=== PATIENT | female | born 1995 | race Caucasian/White ===

== ENCOUNTER 2020-07-20 10:49 | Day surgery (SDC) | payer OTHER ==
[2020-07-20 11:44] VITALS: BMI 21.5
[2020-07-20 11:56] LABS: Amnisure Test No Membranes Rupture (No Rupture)
[2020-07-20 11:57] LABS: Amnisure Internal Control QC ACCEPTABLE (ACCEPTABLE)
[2020-07-20] MEDS ORDERED: hydrALAZINE 20 MG/ML VIAL SLOW IVP PRN (12:24)
[2020-07-20 12:38] LABS: Bacteria/HPF 1+ HPF (None Seen); Bilirubin Negative (Negative); Blood, Urine Negative (Negative); Clarity Clear (Clear); Glucose, Urine (Dipstick) Normal (Negative); Ketone, Urine Negative (Negative); Leukocyte Negative Leu/uL (Negative); Nitrite Negative (Negative); Protein, Urine (Dipstick) 20 mg/dL (Neg-Trace); RBC/HPF 0-3 HPF (0-3); Specific Gravity, Urine 1.024 (1.002-1.036); Urobilinogen Normal mg/dL (Less than 2); WBC/HPF 0-3 HPF (0-3); pH, Urine 6.5 (5.0-9.0)
--- NOTE | 2020-07-20 13:15 | PRG ---
DATE OF SERVICE: 07/20/2020 PRIMARY OB: Dr. Amber Cortez. CHIEF COMPLAINT: Leakage of fluid. HISTORY OF PRESENT ILLNESS: The patient is a 24-year-old G1, P0 female with an intrauterine at 26 weeks gestation and 3 days, presenting with leakage of fluid that occurred this morning. She reports required her to change her panty liner and they got her underclothes wet. She reports yesterday she had some discharge that was more mucousy and yellow. She since denies any continued leakage of fluid. She denies any change in discharge or any recent intercourse. The patient denies fever, cough, headache, chest pain, shortness of breath, nausea, vomiting, or diarrhea. The patient reported a little bit of diarrhea this morning. Denies constipation. Denies any new rashes, hip problems, knee problems, or muscle weakness. Denies vaginal bleeding. Denies urinary urgency or frequency. PAST MEDICAL HISTORY: Anxiety, recurrent urinary tract infections. PAST SURGICAL HISTORY: Knee surgery and tonsillectomy. ALLERGIES: NO KNOWN DRUG ALLERGIES. MEDICATIONS: She takes Keflex after intercourse, Zoloft 50 mg tablet daily, and vitamins. SOCIAL HISTORY: Denies drug, alcohol, or tobacco use. OB LABORATORY DATA: Blood type is A negative. Antibody screen is negative. VDRL is nonreactive. HIV is nonreactive. Hepatitis B surface antigen is negative. GC chlamydia is negative. She is rubella immune. REVIEW OF SYSTEMS: Per HPI. PHYSICAL EXAMINATION: VITAL SIGNS: Blood pressure 119/75, heart rate of 83, respiratory rate of 16, saturating 94% to 96% on room air, temperature 98.1. Of note, the pulse oximetry machine is reading through . GENERAL: She appears to be in no acute distress. She is alert, oriented, cooperative, and pleasant to interact with. HEAD: Normocephalic and atraumatic. LUNGS: Clear to auscultation bilaterally. HEART: Regular rate and rhythm. ABDOMEN: Gravid, soft, nontender. EXTREMITIES: Nontender, nonedematous. Vulva without masses, lesions, or erythema. Vagina is moist. She does have a little bit of watery discharge visible, white in color. Cervix is visibly closed. There is no erythema or lesions visible. There is no pooling on Valsalva or bearing down. DIAGNOSTIC DATA: heart tracing shows the fetus with a baseline in the 140s with moderate long-term variability, appropriate for 26-week gestation. Tocometer showing some irritability, not felt by the patient. AmniSure test is negative. Urinalysis and VP3 are pending. ASSESSMENT AND PLAN: The patient is a 24-year-old G1, P0 female with an intrauterine at 26 weeks and 3 days, presenting for leakage of fluid. Her initial evaluation shows no evidence of rupture of membranes. We are awaiting on evidence of urinary tract infection or bacterial vaginosis that could explain some of her symptoms. Fetus has a category 1 tracing. The patient will be discharged to home once the results become available and appropriate antibiotics are prescribed as indicated. The patient has an appointment with Dr. Cortez to be seen on the 06 of August. ua/vp3 were neg. PT was discharged home with reassurance. Job ID: [id number] MTDD
[2020-07-20 14:32] LABS: Bacteria/HPF None Seen HPF (None Seen); Bilirubin Negative (Negative); Blood, Urine Negative (Negative); Clarity Clear (Clear); Glucose, Urine (Dipstick) 150 mg/dL (Negative); Ketone, Urine Negative (Negative); Leukocyte Negative Leu/uL (Negative); Mucous/LPF 1+ LPF (<2+); Nitrite Negative (Negative); Protein, Urine (Dipstick) Negative (Neg-Trace); RBC/HPF 0-3 HPF (0-3); Specific Gravity, Urine 1.017 (1.002-1.036); Squamous Epithelial 0-3 HPF (0-3); Urobilinogen Normal mg/dL (Less than 2); WBC/HPF 0-3 HPF (0-3); pH, Urine 6.5 (5.0-9.0)
== END 2020-07-20 14:20 | disposition home or self-care (01) ==
LOC: L&D/OP 10:49
PROVIDERS: ATTEND Student in an Organized Health Care Education/Training Program
DX: O99.89 Other specified diseases and conditions complicating pregnancy, childbirth and the puerperium (principal); N89.8 Other specified noninflammatory disorders of vagina; O99.342 Other mental disorders complicating pregnancy, second trimester; F41.9 Anxiety disorder, unspecified; Z3A.26 26 weeks gestation of pregnancy
CPT/HCPCS: 81001; 84112; 87480; 87510; 87660; 99284

== ENCOUNTER 2020-07-27 10:40 | Day surgery (SDC) | payer OTHER ==
[2020-07-27 11:20] VITALS: BP 119/59; BMI 21.5
[2020-07-27 11:42] LABS: Amnisure Test No Membranes Rupture (No Rupture)
[2020-07-27 11:43] LABS: Amnisure Internal Control QC ACCEPTABLE (ACCEPTABLE)
--- NOTE | 2020-07-27 12:00 | PDOC.LDHP ---
Labor and Delivery H&P Chief complaint: loss of fluid HPI: 24 y/o G1 at 27w3d, patient of Dr. Cortez, presents with LOF. She reports having a big gush of fluid earlier this morning. Having mild cramping but denies VB, ctx, or decreased FM. ROS neg for HEENT, cv, pulm, gi, gu, neuro, psych, skin, musculoskeletal or constitutional symptoms other than mentioned above. OB History Details: First Past Medical History: Anxiety, recurrent UTIs Current medications: pre-robyn vitamins, other (zoloft 50mg, keflex after intercourse) Previous surgical history: other (knee surgery, tonsillectomy) Allergies/Adverse Reactions: Allergies Allergy/AdvReac Type Severity Reaction Status Date / Time No Known Allergies Allergy Verified 07/27/20 11:20 Social history: none - Physical Exam Vital signs reviewed and normal: yes General: NAD, resting Lungs: nonlabored breathing Abdomen: gravid Extremeties: no edema FHT: category 1 (140s, mod variability, + accels, no decels) [place] contractions every: None - Vaginal Exam cm dilated: 0 Effacement: 0% Station: -3 - OB Labs Blood type: A RH: negative - Assessment 24 y/o G1 at 27w3d with no e/o SROM. SSE neg for pooling, valsalva, and a mnisure negative. Bedside ultrasound for CLIFTON = 17cm. status reassuring with reactive NST. - Plan -: D/c home with precautions. Advised to keep all appointments.
== END 2020-07-27 12:05 | disposition home or self-care (01) ==
LOC: L&D/OP 10:40
PROVIDERS: ATTEND Student in an Organized Health Care Education/Training Program
DX: O99.89 Other specified diseases and conditions complicating pregnancy, childbirth and the puerperium (principal); N89.8 Other specified noninflammatory disorders of vagina; O99.342 Other mental disorders complicating pregnancy, second trimester; F41.9 Anxiety disorder, unspecified; O23.42 Unspecified infection of urinary tract in pregnancy, second trimester; Z3A.27 27 weeks gestation of pregnancy; Z79.899 Other long term (current) drug therapy
CPT/HCPCS: 84112; 99283

== ENCOUNTER 2020-09-16 17:49 | Day surgery (SDC) | payer OTHER ==
[2020-09-16 18:14] VITALS: BP 115/70; TEMP 97.5; BMI 23.6
[2020-09-16] MEDS ORDERED: hydrALAZINE 20 MG/ML VIAL SLOW IVP PRN (19:28)
[2020-09-17] MEDS ORDERED: hydrALAZINE 20 MG/ML VIAL SLOW IVP PRN (00:44)
--- NOTE | 2020-09-17 01:36 | PRG ---
DATE OF SERVICE: 09/16/2020 PRIMARY OB: Dr. Amber Cortez. CHIEF COMPLAINT: Elevated blood pressures. HISTORY OF PRESENT ILLNESS: The patient is a 24-year-old, G1, P0 female with an intrauterine at 34 weeks and 5 days, presenting to Labor and Delivery with reports of elevated blood pressure at home that she reported as high as 160s over 100s. The patient rested and on repeat exam was noted to be in the 130s over 90s. Given elevations in her blood pressure, the patient came in for evaluation. She reports that she has been having a mild headache, but that has not gotten any worse. She denies shortness of breath. She denies abdominal pain. She denies changes in vision. The patient reports that she started checking her blood pressures with telemedicine visits and had been in the habit of checking them due to that. She denies fever or cough, headache, chest pain, shortness of breath, nausea, vomiting, diarrhea, constipation, or hip problems, she reports with the as well as low back pain. She denies any muscle weakness. She denies vaginal bleeding or leakage of fluid. She denies urinary urgency or frequency. The patient does report having a discharge that has changed more to yellow color and noticed an odor like apple cider vinegar. PAST MEDICAL HISTORY: Anxiety and recurrent urinary tract infections. PAST SURGICAL HISTORY: She has had knee surgery and tonsillectomy. ALLERGIES: NO KNOWN DRUG ALLERGIES. MEDICATIONS: 1. Keflex after intercourse. 2. Zoloft 50 mg daily. 3. vitamins. SOCIAL HISTORY: Denies drug, alcohol, or tobacco use. OB LABS: Blood type is A negative. Antibody screen is negative. VDRL is nonreactive. HIV is nonreactive. Hepatitis B surface antigen is negative. GC and Chlamydia are negative. She is rubella immune. REVIEW OF SYSTEMS: Per HPI. PHYSICAL EXAMINATION: VITAL SIGNS: Initial blood pressure 115/70, heart rate of 107, respiratory rate of 18, and temperature 97.5. GENERAL: She appears to be in no acute distress. She is alert, oriented, cooperative, and pleasant to interact with. HEAD: Normocephalic and atraumatic. LUNGS: Clear to auscultation bilaterally. HEART: Has regular rate and rhythm. ABDOMEN: Gravid, soft, and nontender. EXTREMITIES: Nontender with no pretibial edema, had some minimal pedal edema. : The patient has vulva without lesions or erythema. Vagina is moist with a significant amount of discharge. VPIII was collected. Cervix is visibly closed. DIAGNOSTIC DATA: heart tracing shows the fetus with a baseline in the 140s with moderate long-term variability, positive 15 x 15 accelerations, no decelerations. Tocometer showing some irritability. VPIII is positive for Gardnerella, negative for yeast or Trichomonas. Recurrent blood pressures demonstrated 100s up to 122 over 50s to 77 as a range of blood pressures. After about an hour and a half of monitoring, the patient was updated with her VPIII results and with her blood pressures. We reviewed the important points of technique to aid and accurate blood pressure measuring and primary substance abuse counselor the patient to follow up with her primary OB as scheduled. Fetus has a reactive NST and category 1 tracing. VPIII was positive for Gardnerella and a prescription of metronidazole 500 mg to be taken twice a day for 7 days was provided. She does have followup appointment tomorrow with Dr. Cortez. Job ID: [id number]
== END 2020-09-16 20:45 | disposition home or self-care (01) ==
LOC: L&D/OP 17:49
PROVIDERS: ATTEND Student in an Organized Health Care Education/Training Program
DX: O99.891 Other specified diseases and conditions complicating pregnancy (principal); R03.0 Elevated blood-pressure reading, without diagnosis of hypertension; R51.9 Headache, unspecified; O99.343 Other mental disorders complicating pregnancy, third trimester; F41.9 Anxiety disorder, unspecified; O23.43 Unspecified infection of urinary tract in pregnancy, third trimester; O23.593 Infection of other part of genital tract in pregnancy, third trimester; B96.89 Other specified bacterial agents as the cause of diseases classified elsewhere; Z3A.34 34 weeks gestation of pregnancy; Z79.899 Other long term (current) drug therapy
CPT/HCPCS: 87480; 87510; 87660; 99284

== ENCOUNTER 2020-10-17 11:00 | Inpatient (IN) | payer OTHER ==
[~2020-10-17 11:00] MED LIST: Bupivacaine/Epinephrine 0.25% 30 ML VIAL ONE
[2020-10-17 11:44] VITALS: BMI 26.1
[2020-10-17] MEDS ORDERED: hydrALAZINE 20 MG/ML VIAL SLOW IVP PRN ×3 (11:55→18:48)
--- NOTE | 2020-10-17 11:56 | PDOC.FPROB ---
FMR OB H&P: HPI - History of Present Illness Chief Complaint: ctx Indentification: 24yo @ 39.1 by LMP c/w 8wk sono presents for ctx History of Present Illness: 24yo @ 39.1 by LMP c/w 8wk sono presents for ctx. Onset 0800. Initially intermittent, increased intensity and frequency to q3-4min, breathing through. Endorses good movement. No LOF, VB, dysuria, fever/chills, n/v, Cp, SOB, TERRY, vision changes. Was checked in office on , 1cm. Has passed mucous plug but otherwise normal vaginal discharge. Primary Care Physician: Dana FMR OB H&P: Current - Care : 1 Para: 0 Gestational age: 39.1 Due date: 10/23/20 Dating Criteria: LMP/8wk sono - OB Labs Blood type: A RH: negative Antibody Screen: negative HIV: negative RPR: negative HepBsAg: negative Rubella: immune 1 hour gtt: 115 GBS: negative H&H: 11.4 Additional labs: HCV negative FMR OB H&P: History - Past Medical History PMH: Anxiety, recurrent post-coital UTI's - OB History OB History: Primigravida - RESIDENT ADVISOR History RESIDENT ADVISOR History: None - Surgical History Sx History: Tonsils and adenoids - Social History Social History: . Denies tob, etoh, illicits. - Family History Family History: Denies FMR OB H&P: Medications - Current Home Medications: Medication Instructions Recorded Confirmed Type Pnv No.95/Ferrous Fum/Folic AC 1 each PO DAILY 07/27/20 10/17/20 History [ [place]] Sertraline HCl [Zoloft] 50 mg PO DAILY 07/27/20 10/17/20 History Metronidazole [metroNIDAZOLE] 500 mg PO Q12HR #14 tab 09/16/20 10/17/20 Rx Allergies/Adverse Reactions: Allergies Allergy/AdvReac Type Severity Reaction Status Date / Time No Known Allergies Allergy Verified 07/27/20 11:20 FMR OB H&P: ROS - Review of Systems General: denies: fever/chills, fatigue Eyes: denies: vision changes, scotomas ENT: denies: nasal congestion, rhinorrhea, sore throat Cardiovascular: denies: chest pain, palpitation, edema Respiratory: denies: cough, congestion, shortness of breath Gastrointestinal: denies: abdominal pain, nausea, vomiting Genitourinary (Female): reports: vaginal discharge, contractions. denies: dysuria, vaginal bleeding Integumentary: denies: rash Psychological: reports: anxiety FMR OB H&P: Vital Signs - Maternal Vital signs: Vital Signs - First Documented Temp Pulse Resp BP Pulse Ox 97.8 F 82 18 132/88 98 10/17/20 11:20 10/17/20 11:20 10/17/20 11:20 10/17/20 11:20 10/17/20 11:20 - Heart Tones Baseline: 130 Variability: moderate Acceleration: present Deceleration: absent Category: category 1 [place] contractions every: 3-4 FMR OB H&P: Physical Exam - Physical Exam General: NAD, awake, alert and oriented HEENT: EOMI, MMM Neck: supple, trachea midline Heart: RRR, normal S1/S2, no murmurs/rubs/gallops, no edema General: CTAB, no respiratory distress, good air movement, no rales/rhonchi, no wheezing Abdomen: soft, gravid, non-tender, bowel sound present Musculoskeletal: FROM in all four extremities Neurological: no focal deficit Psychiatric: intact recent and remote memory, good judgement and insight, normal mood and affect - Pelvic Exam SVE: -1 Membranes: Intact FMR OB H&P: A/P - Problem List (1) Term Current Visit: Yes Status: Acute Code(s): Z34.90 - ENCNTR FOR SUPRVSN OF NORMAL , UNSP, UNSP TRIMESTER Disposition: 24yo @ 39.1 by LMP c/w 8wk sono presents for ctx #Latent labor, SIUP, Term - SVE 1 @ 1130, was 1cm in office 2 days ago - Cat 1 FHT, ctx q3-4min, breathing through - GBS negative - Initial BP 132/88, having ctx during measurement, no sxs of PreE, will co ntinue to monitor - Will recheck in 2 hours, if cervical change will admit for expectant management - desires epidural #RH negative - Aware, Rhogam as indicated #Anxiety - Home Zoloft #Iron def Anemia - On PNV with iron, Ferritin 15, Hb in 3T 11.4, monitor PP PCP: Dana VTE: Ambulation Diet: Clears IVF: None Dispo: Monitor BP and FHT. Ambulation and hydration. SVE in 2 hours for determination of discharge with labor precautions or admission for expectant management. Discussion: Date/Time: 10/17/20 0964 This H&P was discussed with Dr. Bullock who agrees with the above documentation and plan.
[2020-10-17] MEDS ORDERED: Diphenoxylate HCl/Atropine Tablet PO PRN (13:03)
[2020-10-17] MEDS ORDERED: Lidocaine 1% (PF) 30 ML VIAL SC PRN (13:03)
[2020-10-17] MEDS ORDERED: Promethazine HCl 25 MG/ML VIAL IM PRN (13:03)
[2020-10-17] MEDS ORDERED: Methylergonovine 0.2 MG/ML VIAL IM PRN (13:03)
[2020-10-17] MEDS ORDERED: Ibuprofen 800 MG TAB PO PRN (13:03)
[2020-10-17] MEDS ORDERED: Butorphanol Tartrate 1 MG/ML VIAL SLOW IVP PRN (13:03)
[2020-10-17] MEDS ORDERED: Ondansetron PF 4 MG/2 ML Vial IVP PRN (13:03)
[2020-10-17] MEDS ORDERED: Carboprost 250 MCG/ML AMP IM PRN (13:03)
[2020-10-17] MEDS ORDERED: Acetaminophen 500 MG TAB PO PRN (13:03)
[2020-10-17] MEDS ORDERED: NS / Oxytocin 40 units/1000ml 1,000 ML IV PRN (13:03)
[2020-10-17] MEDS ORDERED: Misoprostol 200 MCG TAB PR PRN (13:03)
--- NOTE | 2020-10-17 13:09 | PDOC.LDPN ---
Labor & Delivery Progress Note - Subjective Subjective: comfortable, painful contractions, no concerns - Objective Vital signs reviewed and normal: yes (BP 124/62) General: NAD, breathing through contractions Uterine fundus: non tender SVE: 3-//-1 FHT: category 1 (accels, no deccels, moderate variability) [place] contractions every: Not easily appreciated on toco, q3-4min per patient - Assessment (1) Term Code(s): Z34.90 - ENCNTR FOR SUPRVSN OF NORMAL , UNSP, UNSP TRIMESTER Current Visit: Yes Status: Acute Plan: continue plan of care -: 24yo @ 39.1 by LMP c/w 8wk sono presents for ctx #Latent labor, SIUP, Term - SVE 80/-1 @ 1130 - SVE 3-/-1 @ 1300 - Cat 1 FHT, ctx q3-4min, breathing through - GBS negative - Initial BP 132/88, repeat 124/62 - Admit for expectant management - Desires epidural #RH negative - Aware, Rhogam as indicated #Anxiety - Home Zoloft #Iron def Anemia - On PNV with iron, Ferritin 15, Hb in 3T 11.4, monitor PP PCP: Dana VTE: SCDs Diet: Clears IVF: None Dispo: Cervical change with consistent ctx. Admit term in labor for expectant management. Anesthesia for epidural. Continue to monitor, recheck in 4 hours. Above plan discussed with Dr. Bullock, who agrees with plan and documentation.
[2020-10-17] MEDS: Lactated Ringer's 1,000 ML IV SCH ×2 (13:20→14:40)
--- NOTE | 2020-10-17 13:26 | HP ---
TIME OF EVALUATION: 1200 to 1215. CHIEF COMPLAINT: Contractions. LOCATION: Labor and Delivery Triage in [facility]. HISTORY OF PRESENT ILLNESS: This is a patient of Dr. Amber Cortez, who currently is out. The patient is a 24-year-old G1 at 39 weeks and 1 day with complaint of contractions that started around 8 this morning and have increase in frequency to about every 3 to 4 minutes. She denies any leakage of fluid, watery discharge, or vaginal bleeding. She denies headaches or visual changes. She has no right upper quadrant pain. She is otherwise well and has good movement and is here concern for labor. REVIEW OF SYSTEMS: Complete review of systems was checked and is otherwise negative unless specified in the HPI. GENERAL: She is in no acute distress. She denies shortness of breath, fevers or chills or sick contacts. RESPIRATORY: No shortness of breath. CHEST/CARDIOVASCULAR: No chest pain. ABDOMEN: Patient with uterine contractions, but no constipation or diarrhea. EXTREMITIES: No abnormal swelling or pain in the legs. PAST MEDICAL HISTORY: Significant only for history of anxiety. MEDICATIONS: Include: 1. Zoloft. 2. vitamins. PAST SURGICAL HISTORY: Noncontributory. OBSTETRIC HISTORY: She is a G1, P0. SOCIAL HISTORY: Negative for alcohol, tobacco, and drug use. PHYSICAL EXAMINATION: VITAL SIGNS: Her blood pressure was 132/88, but that was taken during a contraction. She is afebrile with normal pulse in the 90s. GENERAL: She is having some contraction discomfort, but is in no acute distress. ABDOMEN: Uterus is firm with moderate contractions palpable when they occur. Otherwise, her abdomen is soft, nontender, and nondistended. PELVIC: Cervical exam reveals a cervix of 2 cm dilation, 80% effacement, -1 station. There is no evidence of vaginal bleeding or leakage of fluid grossly. EXTERNAL MONITORING: I reviewed the monitoring strip. Baby's heart rate is normal with great variability and accelerations. There are no pathological decelerations. Contractions are irregular on tocodynamometer as she is sitting up, but the contraction strip is category 1. INTERVENTIONS ORDERED: We have ordered pain medication p.r.n. and we will place her at 2-hour obs as she is 2 cm. ASSESSMENT: This is a primigravida in latent phase of labor at full term, who is GBS negative. She had a blood pressure of 132/88, that was taken with a contraction, so we will just follow for these next 2 hours or so. PLAN: 1. Close followup on blood pressure. 2. I suspect she will likely stay due to her labor discomfort, but as she is only 2 cm, we will not admit yet, but place her in traditional observation per L and D protocol. 3. GBS negative. 4. Dr. Cortez is away, so if she does get admitted and stay for labor, we will be primarily managing. Job ID: [id number]
[2020-10-17 13:41] LABS: Hemoglobin 12.2 g/dL (12.0-16.0); Mean Corpuscular HGB CONC 34.4 g/dL (32.0-36.0); Mean Corpuscular Hemoglobin 27.1 pg (27.0-31.0); Mean Corpuscular Volume 78.8 fL (78.0-98.0); Mean Platelet Volume 9.2 fL (7.4-10.4); Platelet Count 183 thou/uL (130-400); RBC Distribution Width 13.3 % (11.5-14.5); Red Blood Cell (RBC) Count 4.48 mill/uL (4.20-5.40); White Blood Cell (WBC) Count 12.3 thou/uL (4.8-10.8)
[2020-10-17] MEDS ORDERED: Bupivacaine 0.5% 20 ML, fentaNYL Citrate/PF 400 MCG in Sodium Chloride 0.9% 72 ML EPIDURAL SCH (13:45)
[2020-10-17] MEDS ORDERED: DISCONTINUE ALL PREVIOUS NARCOTICS FS SCH (13:45)
[2020-10-17 14:21] LABS: Syphilis Antibody Nonreactive (Nonreactive); Syphilis Antibody Index 0.04 S/CO (<1.00 Non-Reactive)
[2020-10-17 14:28] LABS: HBSAg Index 0.14 S/CO (0-0.99); Hep B Surf Ag Non-Reactive S/CO (NonReactive)
--- NOTE | 2020-10-17 15:29 | PDOC.LDPN ---
Labor & Delivery Progress Note - Subjective Subjective: comfortable, painful contractions, no concerns - Objective Vital signs reviewed and normal: yes Abnormal vital signs: BP up to 152/64 during epidural placement, 110s/60s since General: NAD, resting Uterine fundus: non tender SVE: 6/100/0 FHT: category 2 (Single variable decel, since has been cat 1 with accels, no further decels, moderate variability) [place] contractions every: 3-4min - Assessment (1) Term Code(s): Z34.90 - ENCNTR FOR SUPRVSN OF NORMAL , UNSP, UNSP TRIMESTER Current Visit: Yes Status: Acute Plan: continue plan of care, other (FACULTY NOTE: I have reviewed the patients FHTs and vitals. Follow BPs are 150 systolic noted getting epidural. ) -: 24yo @ 39.1 by LMP c/w 8wk sono presents for ctx #Latent labor, SIUP, Term - SVE 2/80/-1 @ 1130 - SVE 3-4/90/-1 @ 1300 - SVE 6/100/0 @ 1530 - epidural in place - Cat 2 FHT with single variable decel, ctx q3-4min - GBS negative - 3 elevated BPs up to 152/64 during epidural placement, no severe features. BPs 110s/60s since. Will check CMP. Continue to monitor - Continue expectant management. #RH negative - Aware, Rhogam as indicated #Anxiety - Home Zoloft #Iron def Anemia - On PNV with iron, Ferritin 15, Hb in 3T 11.4, monitor PP PCP: Dana VTE: SCDs Diet: Clears IVF: None Dispo: Continue expectant management. Monitor FHT and BPs. Above plan discussed with Dr. Bullock, who agrees with plan and documentation.
--- NOTE | 2020-10-17 16:03 | PDOC.BPN ---
- Brief Progress Note Evidence of prior rhogam noted on blood bank. CMP pending.
--- NOTE | 2020-10-17 16:32 | PDOC.LDPN ---
Labor & Delivery Progress Note - Subjective Subjective: comfortable - Objective Abnormal vital signs: some BPs 140s/high 80s noted General: NAD Uterine fundus: non tender - Assessment (1) Term Code(s): Z34.90 - ENCNTR FOR SUPRVSN OF NORMAL , UNSP, UNSP TRIMESTER Current Visit: Yes Status: Acute Plan: continue plan of care, other (I discussed AROM and BPs with her. Romina here and we I will AROM now for poss augmenatiion.)
--- NOTE | 2020-10-17 16:48 | PDOC.BPN ---
- Brief Progress Note SECOND STAGE START and AROM: AROM done to assist descent: EXAM by me: C/C/+1 Cephalic. Thin mec noted. I discussed that with the parents/patient.I will have NICU RNs ready at bedside. Delayed pushing vs immediate discussed with Romina (RN) and patient. As she cannot feel right now due to HARRY, recheck and start pushing in 30 min. FHTS reasssuring. Aware of data on immediate pushing on second stage...addressed with her. Last BP with SBP of 144 but no sxs.
[2020-10-17] MEDS ORDERED: NS w/ Oxytocin 30 units 500 ML ONE ×2 (16:51→19:50)
--- NOTE | 2020-10-17 18:46 | PDOC.OPDEL ---
OB Operative/Delivery Note Delivery Dr/Surgeon: Kobe/Meghna Assist: Bullock Staff for Meghna (Present and participated) Pre-Delivery Diagnosis: active labor Procedure/Post Delivery Dx: spontaneous vaginal delivery (baby, Male at 1831...vigorous) Weeks gestation: 39 Anesthesia: epidural - Findings A Sex: male - 1 min: 8 - 5 min: 9 - Additional Findings/Plan Placenta delivered: spontaneous (at 1836; mohini, intact, not mec stained) Repaired Obstetrical Laceration: 2nd degree (midline, RX with 2-0 vicryl under HARRY) Estimated blood loss: less than 150ml Compilations/Other Findings: baby well No NC. Art gas sent for thin mec. 2nd degree RX under my supervision by Dr Coffman. Plac with 3VC...intact grossly. Counts correct. Post delivery plan: routine recovery
[2020-10-17] MEDS ORDERED: Acetaminophen/Codeine 30-300mg Tablet PO PRN ×2 (18:48)
[2020-10-17] MEDS ORDERED: Lanolin Ointment 7 GM TUBE TOP PRN (18:48)
[2020-10-17] MEDS ORDERED: Milk Of Magnesia 30 ML UDCUP PO PRN (18:48)
[2020-10-17] MEDS ORDERED: Measles/Mumps/Rubella 10 MCG/0.5 ML VIAL SC ONE (18:48)
[2020-10-17] MEDS ORDERED: Varicella virus, LIVE 0.5 ML VIAL SC ONE (18:48)
[2020-10-17] MEDS ORDERED: Adacel (T-DAP) 0.5 ML SYRINGE IM ONE (18:48)
[2020-10-17] MEDS ORDERED: Zolpidem Tartrate 5 MG TAB PO PRN (18:48)
[2020-10-17] MEDS ORDERED: Bisacodyl 10 MG SUPP PR PRN (18:48)
[2020-10-17] MEDS ORDERED: NS / Oxytocin 40 units/1000ml 1,000 ML IV SCH (19:00)
[2020-10-17 19:07] LABS: Actual Bicarbonate (HCO3a) 20.2 mEq/L (22-28); Base Excess (BEa) -9.8 mEq/L (-2.0 to +3.0)
[2020-10-17 19:10] LABS: Actual Bicarbonate (HCO3v) 22 mEq/L (22-28); Base Excess -6.3 mEq/L (-2.0 to +3.0)
[2020-10-17 19:11] LABS: pH (Cord, venous) 7.23 (7.32-7.43)
[2020-10-17 19:19] LABS: ALT (SGPT) 11 U/L (8-55); AST (SGOT) 15 U/L (5-34); Albumin 3.5 g/dL (3.5-5.0); Alkaline Phosphatase 214 U/L (40-110); Anion Gap 17 mmol/L (10-20); BUN (Urea Nitrogen) 10 mg/dL (7.0-18.7); Bilirubin, Total 0.4 mg/dL (0.2-1.2); Calc. Creatinine Clearance 145 mL/min (70-130); Calcium 8.7 mg/dL (7.8-10.44); Carbon Dioxide 21 mmol/L (22-29); Chloride 104 mmol/L (98-107); Globulin 2.8 g/dL (2.4-3.5); Glucose 69 mg/dL (70-105); Potassium 4.3 mmol/L (3.5-5.1); Protein, Total 6.3 g/dL (6.0-8.3); Sodium 138 mmol/L (136-145)
[2020-10-17] MEDS ORDERED: diphenhydrAMINE 25 MG CAP PO SCH (20:30)
[2020-10-18] MEDS: Ibuprofen 800 MG TAB PO SCH ×4 (00:07→22:42)
[2020-10-18] MEDS: Docusate Calcium (SURFAK) 240 MG CAP PO SCH ×2 (00:08→08:41)
[2020-10-18 02:16] LABS: SARS-CoV-2 MS2 Positive; SARS-CoV-2 N Gene Negative; SARS-CoV-2 S Gene Negative; SARS-CoV-2 by NAA Not Detected (NotDetected); SARS-CoV-2 orf1ab Negative
[2020-10-18] MEDS: Lactated Ringer's 1,000 ML IV SCH ×3 (05:23→21:13)
--- NOTE | 2020-10-18 07:11 | PDOC.PP ---
Post Progress Note Post Day #: 1 Subjective: Doing well. Lochia less than normal period. Pain-well controlled. Voiding and passing flatus. Tolerating PO well without n/v. Ambulating. No concerns. Denies vision changes, TERRY, SOB, CP, fever/chills. PO intake tolerated: yes Flatus: yes Ambulation: yes Vital Signs (12 hours) Temp Pulse Resp BP Pulse Ox 10/18/20 04:35 98.1 F 85 18 140/65 99 10/17/20 23:35 98.5 F 86 18 145/73 H 97 Weight Weight 80.286 kg - Physical Examination General: NAD (resting comfortably in bed, good spirits) Cardiovascular: no m/r/g, RRR Respiratory: clear to auscultation bilaterally, non-labored breathing Abdominal: + bowel sounds, no distention, appropriately TTP Fundus firm & at: above umbilicus Extremities: negative homans (B) (no edema) Neurological: no gross focal deficits Psychiatric: A&Ox3, normal affect Result Diagrams: 10/17/20 13:23 10/17/20 13:53 Additional Labs: Post Labs Hep Bs Antigen Non-Reactive S/CO (NonReactive) 10/17/20 13:24 Blood Type A NEGATIVE 10/17/20 15:00 (1) Term Code(s): Z34.90 - ENCNTR FOR SUPRVSN OF NORMAL , UNSP, UNSP TRIMESTER Status: Acute - Assessment/Plan 24yo s/p @ 39.1 by LMP c/w 8wk sono now PPD#1 #Term SIUP, s/p , PPD#1 - GBS negative - on 10/17, 2nd degree lac repaired - Doing well, routine Post care - Cord ABG pH 7.132, thin mec at AROM #Elevated BP - Multiple elevated BP during labor, none in severe range. CBC and CMP WNL. - PP BP with 2 in elevated range of 140/65 and 145/73, no severe range and no severe features - Will continue to monitor BP closely #RH negative - Baby A+, s/p rhogam #Anxiety - Stable, Home Zoloft #Iron def Anemia - Ferritin 15, Hb in 3T 11.4, QBL 361, continue iron PCP: Dana VTE: SCDs Diet: Regular IVF: None Dispo: PPD#1, routine PP care. Monitor BP. Anticipate discharge tomorrow pending clinical course. Above plan discussed with Dr. Bullock, who agrees with plan and documentation. OBGYN Faculty: I have evaluated the patient and reviewed plan of care. Agree for DC tomorrow if stable as status. CMP was normal.
--- NOTE | 2020-10-18 07:57 | PDOC.BPN ---
- Brief Progress Note Last exam 8cm...doing well. Vitals reviewed Will check out to next team at 0800.
--- NOTE | 2020-10-18 08:02 | PDOC.BPN ---
- Brief Progress Note Notified just now of vag bleed episode. 8cm last check. We will perform AROM to assess fluid now.
[2020-10-18] MEDS: Ferrous Sulfate 325 MG TAB PO SCH ×2 (08:42→15:34)
[2020-10-18] MEDS: Prenatal Vitamin 1 TAB PO SCH (08:43)
[2020-10-18] MEDS ORDERED: Docusate Calcium (SURFAK) 240 MG CAP PO SCH (22:00)
[2020-10-19] MEDS: Lactated Ringer's 1,000 ML IV SCH ×2 (06:26→13:34)
[2020-10-19] MEDS: Ibuprofen 800 MG TAB PO SCH ×2 (06:39→13:34)
[2020-10-19] MEDS: Ferrous Sulfate 325 MG TAB PO SCH (08:54)
[2020-10-19] MEDS: Prenatal Vitamin 1 TAB PO SCH (08:59)
[2020-10-19] MEDS ORDERED: Docusate Calcium (SURFAK) 240 MG CAP PO SCH (09:00)
[2020-10-19 09:16] VITALS: BP 125/67; TEMP 98
== END 2020-10-19 15:00 | disposition home or self-care (01) | DRG 807 ==
LOC: L&D/OP 11:00 → L&D 13:37 → 3SE 23:42
PROVIDERS: ADMIT Student in an Organized Health Care Education/Training Program; ATTEND Student in an Organized Health Care Education/Training Program
PROC: 10E0XZZ Delivery of Products of Conception, External Approach (ICD-10-PCS; principal; 2020-10-17)
PROC: 0KQM0ZZ Repair Perineum Muscle, Open Approach (ICD-10-PCS; 2020-10-17)
PROC: 10907ZC Drainage of Amniotic Fluid, Therapeutic from Products of Conception, Via Natural or Artificial Opening (ICD-10-PCS; 2020-10-17)
PROC: 3E0234Z Introduction of Serum, Toxoid and Vaccine into Muscle, Percutaneous Approach (ICD-10-PCS; 2020-10-18)
DX: O26.893 Other specified pregnancy related conditions, third trimester (principal); Z37.0 Single live birth; Z67.11 Type A blood, Rh negative; Z3A.39 39 weeks gestation of pregnancy; Z20.828 Contact with and (suspected) exposure to other viral communicable diseases; O99.02 Anemia complicating childbirth; D50.9 Iron deficiency anemia, unspecified; O99.344 Other mental disorders complicating childbirth; F41.9 Anxiety disorder, unspecified; O77.0 Labor and delivery complicated by meconium in amniotic fluid; O70.1 Second degree perineal laceration during delivery; Z79.899 Other long term (current) drug therapy
CPT/HCPCS: 36415; 51702; 80053; 82805; 85027; 85461; 86780; 86850; 86870; 86900; 86901; 87340; 87635; 90384; 96372; 99285; J2405; J2590; Q0163; U0003